=== PATIENT | female | born 1945 | race Native Hawaiian/Other Pacific Islander ===

== ENCOUNTER 2020-03-26 13:04 | Outpatient (CLI) | payer OTHER | END 2020-03-26 19:58 | disposition home or self-care (01) | LOC: INF 13:04 | PROVIDERS: ATTEND Internal Medicine Endocrinology, Diabetes & Metabolism | DX: Z23 Encounter for immunization (principal) | CPT/HCPCS: 96372 ==

== ENCOUNTER 2020-11-09 14:02 | Outpatient (CLI) | payer OTHER | END 2020-11-09 20:09 | disposition home or self-care (01) | LOC: US 14:02 | PROVIDERS: ATTEND Nurse Practitioner Family | DX: R60.0 Localized edema (principal); R32 Unspecified urinary incontinence ==

== ENCOUNTER 2020-11-10 13:54 | Outpatient (CLI) | payer OTHER | END 2020-11-10 19:14 | disposition home or self-care (01) | LOC: US 13:54 | PROVIDERS: ATTEND Family Medicine | DX: R60.0 Localized edema (principal) ==

== ENCOUNTER 2021-01-18 14:05 | Outpatient (CLI) | payer OTHER ==
[2021-01-18 14:49] LABS: POTASSIUM 4.2 mmol/L (3.6-5.2)
== END 2021-01-18 19:22 | disposition home or self-care (01) ==
LOC: RESP 14:05 → LABW 14:05
PROVIDERS: ATTEND Nurse Practitioner Family
DX: R07.89 Other chest pain (principal)
CPT/HCPCS: 36415; 80048; 82550; 82553; 84484; 93005

== ENCOUNTER 2021-07-13 07:54 | Outpatient (CLI) | payer OTHER | END 2021-07-13 19:27 | disposition home or self-care (01) | LOC: US 07:54 | PROVIDERS: ATTEND Nurse Practitioner Family | DX: R80.8 Other proteinuria (principal) ==

== ENCOUNTER 2021-07-27 12:54 | Outpatient (CLI) | payer OTHER | END 2021-07-27 18:59 | disposition home or self-care (01) | LOC: CT 12:54 | PROVIDERS: ATTEND Nurse Practitioner Family | DX: J32.8 Other chronic sinusitis (principal); R05.3 Chronic cough ==

== ENCOUNTER 2021-08-31 17:00 | Emergency (ER) | payer OTHER ==
[~2021-08-31] VITALS: Ht 121.9 cm; Wt 70.3 kg
[2021-08-31 18:12] LABS: POTASSIUM 4.3 mmol/L (3.6-5.2)
[2021-08-31 18:17] LABS: PLATELET COUNT 297 K/uL (152-353)
[2021-08-31 18:28] VITALS: BP 134/66; TEMP 98
== END 2021-08-31 18:28 | disposition home or self-care (01) ==
LOC: ED 17:00
PROVIDERS: Emergency Medicine
DX: H53.2 Diplopia (principal); G25.2 Other specified forms of tremor; R49.0 Dysphonia
CPT/HCPCS: 80048; 85027; 99283

== ENCOUNTER 2022-01-12 15:33 | Outpatient (CLI) | payer OTHER | END 2022-01-12 19:43 | disposition home or self-care (01) | LOC: RAD 15:33 | PROVIDERS: ATTEND Nurse Practitioner Primary Care | DX: M25.572 Pain in left ankle and joints of left foot (principal); M79.672 Pain in left foot ==

== ENCOUNTER → 2022-02-15 | Emergency (ER) | payer OTHER ==
[~2022-02-15] VITALS: Ht 149.9 cm; Wt 59.0 kg
[2022-02-15 15:10] VITALS: TEMP 98.2
[2022-02-15 15:40] LABS: PLATELET COUNT 239 K/uL (152-353)
[2022-02-15 15:47] LABS: POTASSIUM 3.8 mmol/L (3.6-5.2)
[2022-02-15 16:28] VITALS: BP 143/81
== END ==
LOC: ED 15:10
PROVIDERS: Emergency Medicine
DX: J40 Bronchitis, not specified as acute or chronic (principal); Z20.822 Contact with and (suspected) exposure to COVID-19
CPT/HCPCS: 80053; 83880; 84484; 85027; 87502; 87635; 93005; 96374; 96375; 99283; 99284; J2930; U0003

== ENCOUNTER 2022-03-17 13:38 | Outpatient (CLI) | payer OTHER | END 2022-03-17 21:47 | disposition home or self-care (01) | LOC: US 13:38 | PROVIDERS: ATTEND Nurse Practitioner Family | DX: I83.812 Varicose veins of left lower extremity with pain (principal) ==